=== PATIENT | female | born 1940 | race Caucasian/White ===

== ENCOUNTER 2017-10-03 09:54 | Outpatient (CLI) | payer MEDICARE, OTHER ==
[2017-10-03 18:03] LABS: BASOPHILS # (AUTO) 0.1 10^3/uL (0.0-0.1); BASOPHILS % (AUTO) 0.7 %; EOSINOPHILS # (AUTO) 0.1 10^3/uL (0.0-0.7); HCT - HEMATOCRIT 39.9 % (37.0-47.0); HGB - HEMOGLOBIN 13.4 g/dL (12.0-16.0); LYMPHOCYTES # (AUTO) 1.3 10^3/uL (1.5-3.5); LYMPHOCYTES % (AUTO) 15.1 %; MEAN CORPUSCULAR HEMOGLOBIN 29.1 pg (27.0-31.0); MEAN CORPUSCULAR HGB CONC 33.6 g/dL (32.0-36.0); MEAN CORPUSCULAR VOLUME 86.6 fL (81.0-99.0); MEAN PLATELET VOLUME 8.7 fL (7.9-10.8); MONOCYTES # (AUTO) 0.5 10^3/uL (0.0-1.0); MONOCYTES % (AUTO) 5.6 %; NEUTROPHILS # (AUTO) 6.6 10^3/uL (1.5-6.6); NEUTROPHILS % (AUTO) 77.6 %; RED BLOOD COUNT 4.61 10^6/uL (4.20-5.40); RED CELL DISTRIBUTION WIDTH 13.4 % (12.0-15.0); UNCORRECTED WHITE BLOOD COUNT 8.6 x10^3/uL; WHITE BLOOD COUNT 8.6 x10^3/uL (4.8-10.8)
[2017-10-03 18:49] LABS: BILIRUBIN,TOTAL 0.6 mg/dL (0.2-1.0); BUN - BLOOD UREA NITROGEN 31 mg/dL (6-20); CARBON DIOXIDE - CO2 23 mmol/L (21-32); CHLORIDE 102 mmol/L (101-111); CHOL/HDL RATIO 8.9 (<4.4); CHOLESTEROL 310 mg/dL; CREATININE 1.2 mg/dL (0.4-1.0); GFR - MDRD 44 (>89); GLUCOSE 307 mg/dL (70-100); HDL CHOLESTEROL 35 mg/dL; LDL/HDL RATIO 6.6 (<4.4); POTASSIUM 4.5 mmol/L (3.5-5.0); SODIUM 135 mmol/L (135-145); TOTAL PROTEIN 8.3 g/dL (6.7-8.2); TRIGLYCERIDES 218 mg/dL; VLDL CHOLESTEROL 44 mg/dL
[2017-10-03 18:57] LABS: HEMOGLOBIN A1C 1.54 g/dL
== END 2017-10-03 09:55 | disposition home or self-care (01) ==
LOC: LAB.F 09:54
PROVIDERS: ATTEND Family Medicine
DX: E11.65 Type 2 diabetes mellitus with hyperglycemia (principal); I25.10 Atherosclerotic heart disease of native coronary artery without angina pectoris; G89.29 Other chronic pain
CPT/HCPCS: 36415; 80053; 80061; 83036; 84443; 85025

== ENCOUNTER 2018-07-24 12:26 | Outpatient (CLI) | payer MEDICARE, OTHER ==
--- NOTE | 2018-07-24 17:38 | XRAY Report ---
Reason: INCREASING R SHOULDER PAIN DECREASE ROM/COCCYX Procedure Date: 07/24/2018 Accession Number: [id number] / [id number] Procedure: XR - Sacrum/Coccyx CPT Code: FULL RESULT: EXAM: SACRUM AND COCCYX RADIOGRAPHY EXAM DATE: 07/24/2018 12:41 PM. HISTORY: Increasing right shoulder pain; decreased range of motion/coccyx. COMPARISONS: None. TECHNIQUE: 3 views. FINDINGS: L5-S1 posterior spinal fusion hardware is visualized with grade 1 anterolisthesis and no evidence of hardware failure or complication. Note is made of extensive abdominal aortic atherosclerosis. No fracture of the coccyx or sacrum is identified. The right sacroiliac joint is partially obscured by bowel gas pattern. The left sacroiliac joint is normal. IMPRESSION: Status post L5-S1 fusion without evidence of hardware failure. [facility]
--- NOTE | 2018-07-25 14:17 | MRI Report ---
Reason: INCREASING R SHOULDER PAIN DECREASE ROM/COCCYX Procedure Date: 07/24/2018 Accession Number: [id number] / [id number] Procedure: MRI - Shoulder RT W/O CPT Code: FULL RESULT: EXAM: RIGHT SHOULDER MRI WITHOUT CONTRAST EXAM DATE: 07/24/2018 03:17 PM. CLINICAL HISTORY: Increasing right shoulder pain. Decreased range of motion. COMPARISON: None. TECHNIQUE: Multiplanar, multisequence T1-weighted and fluid-sensitive sequences of the shoulder without contrast. Other: None. FINDINGS: Rotator cuff: Extensive full-thickness tear involving the majority of the supraspinatus and infraspinatus measuring approximately 4.0 cm medial to lateral and 4.5 cm nodule posterior. Moderate infraspinatus greater than supraspinatus atrophy and fatty replacement. Long head biceps tendon: Not visualized within the field of view. Labrum: Degenerative appearance. No discrete tear identified on this nonarthrographic study. Bones and articular surfaces: Mild cartilage thinning in the glenohumeral joint. Superior subluxation of the humeral head articulating with the undersurface of the acromion. Acromioclavicular joint: Mild degenerative change. Type II acromion. IMPRESSION: 1. Extensive full-thickness tears involving the majority of the supraspinatus and infraspinatus approximately 4.0 x 4.5 cm with moderate atrophy and fatty replacement. 2. Nonvisualization of the long head biceps tendon suggesting chronic tear. 3. Mild glenohumeral osteoarthritis. Superior subluxation of the humeral head articulating with the undersurface of the acromion. [facility] MUSCULOSKELETAL RADIOLOGY SECTION
== END 2018-07-24 12:27 | disposition home or self-care (01) ==
LOC: DI 12:26
PROVIDERS: ATTEND Registered Nurse
DX: M75.101 Unspecified rotator cuff tear or rupture of right shoulder, not specified as traumatic (principal); M19.011 Primary osteoarthritis, right shoulder; M53.3 Sacrococcygeal disorders, not elsewhere classified; Z98.1 Arthrodesis status
CPT/HCPCS: 72220

== ENCOUNTER 2018-08-28 02:35 | Outpatient (CLI) | payer MEDICARE, OTHER | END 2018-08-28 02:36 | disposition critical access hospital (66) | LOC: EMS 02:35 | PROVIDERS: ATTEND Surgery | DX: R06.02 Shortness of breath (principal) | CPT/HCPCS: A0425; A0427 ==

== ENCOUNTER 2018-08-28 02:37 | Emergency (ER) | payer MEDICARE, OTHER ==
--- NOTE | 2018-08-28 02:47 | ED Physician Documentation ---
PD HPI DYSPNEA - Stated complaint Stated Complaint: SOA - Chief complaint Chief Complaint: Resp - History obtained from History obtained from: Patient, EMS - History of Present Illness Timing - onset: How many days ago (2) Timing - onset during: Light activity Timing - duration: Days (2) Timing - details: Gradual onset, Still present Inciting event(s): Other (restarted lisinopril) Improved by: O2, Inhaler/neb Worsened by: Exertion Associated symptoms: Wheezing Similar symptoms before: Has not had sx before Recently seen: Clinic - Additional information Additional information: 78-year-old female with a history of prior OK and stroke has a history of hypertension and she was recently restarted on her lisinopril which she had not tolerated previously and when she retired it she did not tolerate it again. She stopped taking this medicine after taking it for 3 days. She had intolerable cough associated with it. This was approximately 2 and half weeks ago. She has developed increasing dyspnea over the past week and tonight she is having difficulty getting across the room. She has noted her feet to be swollen the past 2 days. She has not had this constellation of symptoms before. She initially thought there was something with allergy and this was why she was having a trouble breathing. She denies any chest pain. Review of Systems Constitutional: denies: Fever Eyes: denies: Decreased vision Ears: denies: Ear pain Nose: denies: Rhinorrhea / runny nose, Congestion Throat: denies: Sore throat Cardiac: reports: Pedal edema. denies: Chest pain / pressure, Palpitations, Calf pain Respiratory: reports: Dyspnea. 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 - Present Medications Home Medications: Ambulatory Orders Medication Instructions Recorded Confirmed Chlorhexidine Gluconate [Hibiclens] 10 ml TP DAILY #473 ml 10/09/16 Cyclobenzaprine [Flexeril] 10 mg PO TID PRN #25 tablet 10/09/16 Gabapentin 300 mg PO BID 10/09/16 10/09/16 Insulin Glargine,Hum.rec.anlog 30 unit SQ DAILY 10/09/16 10/09/16 [Dali Dong] Metoprolol Tartrate 25 mg PO BID 10/09/16 10/09/16 Oxycodone HCl [Roxicodone] 15 mg PO TID PRN #30 tablet 10/09/16 prednisoLONE 1% OPHTH DROPS [Pred 1 drop LEFTEYE QID 10/09/16 10/09/16 Forte 1% Ophth Drops] - Allergies Allergies/Adverse Reactions: Allergies Allergy/AdvReac Type Severity Reaction Status Date / Time metformin Allergy Unknown Verified 08/28/18 02:48 lisinopril AdvReac Respiratory Verified 08/28/18 02:48 - Social History Does the pt smoke?: No Smoking Status: Former smoker Does the pt drink ETOH?: Yes Does the pt have substance abuse?: Yes - Immunizations Immunizations are current?: Yes PD ED PE NORMAL - Vitals Vital signs reviewed: Yes (diastolic hypertension ) - General General: Alert and oriented X 3, Well developed/nourished - HEENT HEENT: Atraumatic, PERRL, EOMI - Neck Neck: Supple, no meningeal sign - Cardiac Cardiac: RRR, No murmur - Respiratory Respiratory: Other (tachypneic at rest with bibasilar rales ) - Abdomen Abdomen: Soft, Non tender - Back Back: No CVA TTP, No spinal TTP - Derm Derm: Normal color, Warm and dry, No rash - Extremities Extremities: No deformity, Other (There is pitting edema to both feet. 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, No motor deficit, No sensory deficit, Normal speech Eye Opening: Spontaneous Motor: Obeys Commands Verbal: Oriented GCS Score: 15 - Psych Psych: Normal mood, Normal affect Results - Vitals Vitals: Vital Signs - 24 hr 08/28/18 08/28/18 08/28/18 02:39 03:18 03:30 Temperature 36.4 C L Heart Rate 85 87 84 Respiratory 20 19 20 Rate Blood Pressure 104/93 H 124/86 H 128/74 O2 Saturation 99 94 97 08/28/18 08/28/18 08/28/18 04:13 04:17 05:07 Temperature 36.7 C Heart Rate 87 86 93 Respiratory 17 22 23 Rate Blood Pressure 125/70 116/74 O2 Saturation 100 98 08/28/18 05:23 Temperature Heart Rate 91 Respiratory 22 Rate Blood Pressure 116/74 O2 Saturation 99 Oxygen O2 Source Nasal cannula Oxygen Flow Rate 2 - EKG (time done) 0249 Rate: Rate (enter#) (85) Rhythm: NSR Intervals: LBBB Compare to prior EKG: Old EKG unavailable Computer interpretation: Agree with computer - Labs Labs: Laboratory Tests 08/28/18 08/28/18 08/28/18 02:50 02:50 03:43 WBC 9.4 RBC 3.64 L Hgb 10.6 L Hct 31.5 L MCV 86.5 MCH 29.0 MCHC 33.5 RDW 16.0 H Plt Count 275 MPV 7.8 L Neut # (Auto) 7.7 H Lymph # (Auto) 1.1 L [place] # (Auto) 0.5 Eos # (Auto) 0.1 Baso # (Auto) 0.1 Absolute Nucleated RBC 0.00 Nucleated RBC % 0.0 Sodium 139 Potassium 4.1 Chloride 106 Carbon Dioxide 20 L Anion Gap 13.0 BUN 25 H Creatinine 1.0 Estimated GFR (MDRD) 54 L Glucose 163 H Calcium 8.7 Total Bilirubin 0.7 AST 131 H ALT 173 H Alkaline Phosphatase 164 H Troponin I 0.10 B-Natriuretic Peptide Total Protein 6.9 Albumin 3.3 Globulin 3.6 Albumin/Globulin Ratio 0.9 L Lipase 13 L Urine Color Urine Clarity Urine pH Ur Specific [place] Urine Protein Urine Glucose (UA) Urine Ketones Urine Occult Blood Urine Nitrite Urine Bilirubin Urine Urobilinogen Ur Leukocyte Esterase Ur Microscopic Review Urine Culture Comments 08/28/18 08/28/18 03:43 04:10 WBC RBC Hgb Hct MCV MCH MCHC RDW Plt Count MPV Neut # (Auto) Lymph # (Auto) [place] # (Auto) Eos # (Auto) Baso # (Auto) Absolute Nucleated RBC Nucleated RBC % Sodium Potassium Chloride Carbon Dioxide Anion Gap BUN Creatinine Estimated GFR (MDRD) Glucose Calcium Total Bilirubin AST ALT Alkaline Phosphatase Troponin I B-Natriuretic Peptide 1274 H Total Protein Albumin Globulin Albumin/Globulin Ratio Lipase Urine Color YELLOW Urine Clarity CLEAR Urine pH 5.5 Ur Specific [place] 1.015 Urine Protein NEGATIVE Urine Glucose (UA) NEGATIVE Urine Ketones NEGATIVE Urine Occult Blood NEGATIVE Urine Nitrite NEGATIVE Urine Bilirubin NEGATIVE Urine Urobilinogen 0.2 (NORMAL) Ur Leukocyte Esterase NEGATIVE Ur Microscopic Review NOT INDICATED Urine Culture Comments NOT INDICATED - Rads (name of study) 2 veiw chest Radiology: Prelim report reviewed (Impression: 1. Appearance of the chest suggest mild to moderate CHF. Superimposed bibasilar infection difficult to exclude.), EMP read indepedently, See rad report Procedures - IVC sono (time) 0250 Bedside IVC sono: IVC measures (cm) (2.01), IVC collapsed c insp (cm) (2.00), High CVP, Fluid overload PD MEDICAL DECISION MAKING - ED course Complexity details: reviewed old records, reviewed results, re-evaluated patient, considered differential, d/w patient ED course: 78 y/o female with increasing dyspnea over the past week appears to have acute CHF. She has dyspena, rales on exam, a plethoric IVC, edema on her CXR, evidence of passive liver congestion, elevated BNP and edema in her feet. She is administered IV lasix and a duoneb treatment. A serrano cath is placed with copious return of urine. There is improvement in dyspnea. This patient will require hospital services and here today we do not have a bed available not even an observation bed. [facility] [facility] are also full. The hospitalist at [facility] was kind enough to help us out this evening and accepted her in transfer for continued care of CHF. Departure - Departure Disposition: 02 Transfer Acute Care Hosp Clinical Impression: Congestive heart failure Qualifiers: Heart failure type: unspecified Heart failure chronicity: acute Qualified Code(s): I50.9 - Heart failure, unspecified Condition: Fair Discharge Date/Time: 08/28/18 06:00
[2018-08-28] MEDS ORDERED: FUROSEMIDE 40 MG/4 ML VIAL IVP STA (02:50)
[2018-08-28 03:22] LABS: ALBUMIN 3.3 g/dL (3.2-5.5); ALBUMIN/GLOBULIN RATIO 0.9 (1.0-2.2); BILIRUBIN,TOTAL 0.7 mg/dL (0.2-1.0); CALCIUM 8.7 mg/dL (8.5-10.3); TOTAL PROTEIN 6.9 g/dL (6.7-8.2)
--- NOTE | 2018-08-28 03:34 | XRAY Report ---
Reason: bibasilar rales Procedure Date: 08/28/2018 Accession Number: [id number] / [id number] Procedure: XR - Chest 2 View X-Ray CPT Code: 25551 FULL RESULT: EXAM: CHEST RADIOGRAPHY EXAM DATE: 08/28/2018 03:08 AM. CLINICAL HISTORY: Shortness of breath for 3 days, nonproductive cough. COMPARISON: 05/26/2015 1:49 PM. TECHNIQUE: 2 views. FINDINGS: Lungs/Pleura: There is basilar predominant septal thickening. Pulmonary venous congestion. Additional streaky and indistinct bibasilar airspace disease. There are trace bilateral effusions, left greater than right. Mediastinum: Mild enlargement of the cardiac silhouette. Moderate calcific atherosclerosis. Other: There is moderate to severe right shoulder degenerative change. IMPRESSION: 1. Appearance of the chest suggests mild to moderate CHF. Superimposed bibasilar infection difficult to exclude. [facility]
[2018-08-28 03:48] LABS: BASOPHILS # (AUTO) 0.1 10^3/uL (0.0-0.1); BASOPHILS % (AUTO) 0.6 %; EOSINOPHILS # (AUTO) 0.1 10^3/uL (0.0-0.7); EOSINOPHILS % (AUTO) 0.9 %; HGB - HEMOGLOBIN 10.6 g/dL (12.0-16.0); LYMPHOCYTES # (AUTO) 1.1 10^3/uL (1.5-3.5); LYMPHOCYTES % (AUTO) 11.3 %; MEAN CORPUSCULAR HGB CONC 33.5 g/dL (32.0-36.0); MEAN CORPUSCULAR VOLUME 86.5 fL (81.0-99.0); MEAN PLATELET VOLUME 7.8 fL (7.9-10.8); MONOCYTES # (AUTO) 0.5 10^3/uL (0.0-1.0); MONOCYTES % (AUTO) 5.8 %; NEUTROPHILS # (AUTO) 7.7 10^3/uL (1.5-6.6); NEUTROPHILS % (AUTO) 81.4 %; PLT - PLATELET COUNT 275 10^3/uL (130-450); RED BLOOD COUNT 3.64 10^6/uL (4.20-5.40); WHITE BLOOD COUNT 9.4 x10^3/uL (4.8-10.8)
[2018-08-28] MEDS ORDERED: IPRATROPIUM/ALBUTEROL 3 ML NEB INH STA (03:59)
[2018-08-28 04:27] LABS: BILIRUBIN,URINE NEGATIVE (NEGATIVE); GLUCOSE, URINE (UA) NEGATIVE (NEGATIVE); KETONES,URINE (UA) NEGATIVE (NEGATIVE); LEUKOCYTE ESTERASE, URINE NEGATIVE (NEGATIVE); NITRITE,URINE NEGATIVE (NEGATIVE); OCCULT BLOOD,URINE NEGATIVE (NEGATIVE); PH,URINE 5.5 PH (5.0-7.5); PROTEIN,URINE NEGATIVE (NEGATIVE); UROBILINOGEN,URINE 0.2 (NORMAL) E.U./dL (NORMAL)
[2018-08-28 04:28] LABS: CLARITY,URINE CLEAR (CLEAR)
[2018-08-28 05:24] VITALS: BP 116/74
== END 2018-08-28 06:00 | disposition short-term general hospital (02) ==
LOC: EDUNIT# → ED 02:37
DX: I50.9 Heart failure, unspecified (principal); I44.7 Left bundle-branch block, unspecified; R60.0 Localized edema; K76.1 Chronic passive congestion of liver; I10 Essential (primary) hypertension; E11.9 Type 2 diabetes mellitus without complications; Z79.4 Long term (current) use of insulin; Z87.891 Personal history of nicotine dependence
CPT/HCPCS: 36415; 51702; 71046; 80053; 81001; 81003; 83690; 83880; 84484; 85025; 87086; 93005; 94640; 96374; 99284; 99285

== ENCOUNTER 2018-08-28 05:54 | Outpatient (CLI) | payer MEDICARE, OTHER | END 2018-08-28 05:55 | disposition short-term general hospital (02) | LOC: EMS 05:54 | PROVIDERS: ATTEND Surgery | DX: I50.9 Heart failure, unspecified (principal) | CPT/HCPCS: A0425; A0428 ==

== ENCOUNTER 2019-05-09 14:57 | Outpatient (CLI) | payer MEDICARE, OTHER | END 2019-05-09 14:58 | disposition short-term general hospital (02) | LOC: EMS 14:57 | PROVIDERS: ATTEND Surgery | DX: R79.89 Other specified abnormal findings of blood chemistry (principal) | CPT/HCPCS: A0425; A0429 ==

== ENCOUNTER 2019-06-26 12:49 | Outpatient (CLI) | payer MEDICARE, OTHER ==
[2019-06-26 16:59] LABS: BASOPHILS # (AUTO) 0.1 10^3/uL (0.0-0.1); BASOPHILS % (AUTO) 0.8 %; EOSINOPHILS # (AUTO) 0.1 10^3/uL (0.0-0.7); EOSINOPHILS % (AUTO) 1.2 %; HGB - HEMOGLOBIN 13.7 g/dL (12.0-16.0); LYMPHOCYTES # (AUTO) 0.9 10^3/uL (1.5-3.5); LYMPHOCYTES % (AUTO) 9.2 %; MEAN CORPUSCULAR HEMOGLOBIN 27.8 pg (27.0-31.0); MEAN CORPUSCULAR HGB CONC 31.7 g/dL (32.0-36.0); MEAN CORPUSCULAR VOLUME 87.6 fL (81.0-99.0); MEAN PLATELET VOLUME 11.1 fL (7.9-10.8); MONOCYTES # (AUTO) 0.6 10^3/uL (0.0-1.0); MONOCYTES % (AUTO) 5.5 %; NEUTROPHILS # (AUTO) 8.3 10^3/uL (1.5-6.6); NEUTROPHILS % (AUTO) 82.9 %; PLT - PLATELET COUNT 282 10^3/uL (130-450); RED BLOOD COUNT 4.93 10^6/uL (4.20-5.40); RED CELL DISTRIBUTION WIDTH 14.9 % (12.0-15.0); WHITE BLOOD COUNT 10.1 x10^3/uL (4.8-10.8)
[2019-06-26 17:04] LABS: PT - PROTHROMBIN TIME 11.7 secs (9.9-12.6)
[2019-06-26 17:11] LABS: CALCIUM 9.7 mg/dL (8.5-10.3); CREATININE 1.4 mg/dL (0.4-1.0)
== END 2019-06-26 12:50 | disposition home or self-care (01) ==
LOC: LAB.S 12:49
PROVIDERS: ATTEND Specialist
DX: I25.10 Atherosclerotic heart disease of native coronary artery without angina pectoris (principal); I44.7 Left bundle-branch block, unspecified; I77.9 Disorder of arteries and arterioles, unspecified; I50.22 Chronic systolic (congestive) heart failure
CPT/HCPCS: 36415; 80048; 85025; 85610